=== PATIENT | male | born 1960 | race Caucasian/White ===

== ENCOUNTER 2017-04-18 13:57 | Emergency (ER) | payer MEDICAID ==
[2017-04-18 13:57] VITALS: BMI 29.7
[2017-04-18 14:02] VITALS: BP 119/74; PULSE 91; RESP 16; TEMP 98; O2SAT 100
--- NOTE | 2017-04-18 14:19 | ED PDOC ---
HPI: Back Time Seen by Provider: 04/18/17 14:10 Chief Complaint (Nursing): Back Pain Chief Complaint (Provider): Back pain History Per: Patient History/Exam Limitations: no limitations Onset/Duration Of Symptoms: Days (2) Current Symptoms Are (Timing): Still Present Additional Complaint(s): Patient is a 56 y/o male with a past medical history of kidneys stones presenting to the emergency department for lower back pain ongoing for two days. Also reports difficult bowel movements and constipation x2 days. Notes taking medication for these symptoms which provided relief. Also reports taking Advil (2 tabs) without significant relief. Denies fall, lifting heavy objects, painful urination, radiating pain, or other complaints. PCP: Dr. Almas Almaguer Past Medical History Reviewed: Historical Data, Nursing Documentation, Vital Signs Vital Signs: Last Vital Signs Temp 98.0 F 04/18/17 13:59 Pulse 91 H 04/18/17 13:59 Resp 16 04/18/17 13:59 BP 119/74 04/18/17 13:59 Pulse Ox 100 04/18/17 13:59 - Medical History PMH: HTN, Hypercholesterolemia Denies: Chronic Kidney Disease - Family History Family History: States: Unknown Family Hx - Social History Current smoker - smoking cessation education provided: No Ex-Smoker (has not smoked in the last 12 months): No Alcohol: None Drugs: Denies - Home Medications Home Medications: Ambulatory Orders Medication Instructions Recorded Collagenase [Santyl] 1 appl TOP DAILY 11/23/15 Enalapril Maleate [Vasotec] 1 tab PO DAILY 11/23/15 Ergocalciferol (Vitamin D2) 1 cap PO QWK 11/23/15 [Vitamin D2] Ibuprofen 1 tab PO BID PRN 11/23/15 Multivitamin/Iron/Folic Acid 1 tab PO DAILY 11/23/15 [Certavite-Antioxidant Tablet] Quetiapine Fumarate [Seroquel] 1 tab PO HS 11/23/15 Silver Sulfadiazine [Ssd] 1 appl TOP DAILY 11/23/15 Simvastatin 1 tab PO HS 11/23/15 Tamsulosin HCl [Flomax] 1 cap PO DAILY 11/23/15 Tramadol HCl 1 tab PO Q6H PRN 11/23/15 Clindamycin [Cleocin] 300 mg PO TID #30 cap 12/20/15 traMADol [Ultram] 50 mg PO TID #10 tab 12/20/15 Naproxen 1 tab PO Q12 PRN #14 tab 04/18/17 diaZEpam [Valium] 5 mg PO Q6 PRN #4 tab 04/18/17 - Allergies Allergies/Adverse Reactions: Allergies Allergy/AdvReac Type Severity Reaction Status Date / Time No Known Allergies Allergy Verified 04/18/17 13:59 Review of Systems ROS Statement: Except As Marked, All Systems Reviewed And Found Negative Gastrointestinal: Positive for: Constipation, Other (difficult bowel movements) Musculoskeletal: Positive for: Back Pain (lower) Physical Exam - Reviewed Nursing Documentation Reviewed: Yes Vital Signs Reviewed: Yes - Physical Exam Appears: Positive for: Well, Non-toxic, No Acute Distress Head Exam: Positive for: ATRAUMATIC, NORMAL INSPECTION, NORMOCEPHALIC Skin: Positive for: Normal Color, Warm, Dry Eye Exam: Positive for: Normal appearance Cardiovascular/Chest: Positive for: Regular Rate, Rhythm Respiratory: Negative for: Accessory Muscle Use, Respiratory Distress Back: Positive for: Other (Left lower back tenderness) Neurologic/Psych: Positive for: Alert, Oriented (x3) - Laboratory Results Urine dip results: Negative for: Leukocyte Esterase, Blood, Nitrate, Ketones, Glucose, Bilirubin, Protein - ECG O2 Sat by Pulse Oximetry: 100 (RA) Pulse Ox Interpretation: Normal - Progress ED Course And Treament: upon re-examination, patient denies any heavy lifting but states he notes pain worse with opening door to car. Medical Decision Making Medical Decision Making: Time: 14:19 Initial impression: Back pain Initial plan: ED Urine Dipstick ~ Scribe Attestation: Documented by Amara Manzo, acting as a scribe for [employer] [facility]. Provider Scribe Attestation: All medical record entries made by the Scribe were at my direction and personally dictated by me. I have reviewed the chart and agree that the record accurately reflects my personal performance of the history, physical exam, medical decision making, and the department course for this patient. I have also personally directed, reviewed, and agree with the discharge instructions and disposition. Disposition - Clinical Impression Clinical Impression: Back strain - Patient ED Disposition Is Patient to be Admitted: No - Disposition Disposition: Routine/Home Disposition Time: 15:22 Condition: FAIR Prescriptions: diaZEpam [Valium] 5 mg PO Q6 PRN #4 tab PRN Reason: Muscle Spasm Naproxen 1 tab PO Q12 PRN #14 tab PRN Reason: Pain, Moderate (4-7) Instructions: Acute Low Back Pain (DC) Forms: [employer] (Citizen Of [place])
== END 2017-04-18 15:54 | disposition home or self-care (01) ==
LOC: H.ER 13:57
DX: M54.9 Dorsalgia, unspecified (principal)